=== PATIENT | female | born 1940 | race Caucasian/White ===

== ENCOUNTER → 2016-12-21 | Outpatient (CLI) | payer MEDICARE ==
[2016-12-21 10:48] LABS: BASOPHILS % (AUTO) 0 % (0-2); EOSINOPHILS # (AUTO) 0.2 10^3uL; EOSINOPHILS % (AUTO) 2 % (0-4); LYMPHOCYTES # (AUTO) 2.6 X10^3; MEAN CORPUSCULAR HEMOGLOBIN 30.8 PG (26.0-34.0); MEAN CORPUSCULAR HGB CONC 32.8 g/dL (31.0-37.0); MEAN CORPUSCULAR VOLUME 94 FL (80-100); MEAN PLATELET VOLUME 10.4 FL (6.0-9.5); MONOCYTES # (AUTO) 1.1 X10^3; MONOCYTES % (AUTO) 12 % (3-11); NEUTROPHILS # (AUTO) 5.5 X10^3; NEUTROPHILS % (AUTO) 59 % (51-67); PLATELET COUNT 268 10^3uL (150-450)
[2016-12-21 10:54] LABS: ALBUMIN 3.9 g/dL (3.4-5.0); ANION GAP 13.6 MEQ/L (3-15); CALCULATED IONIZED CALCIUM 4.1 mg/dL (3.8-4.6); TOTAL PROTEIN 7.1 g/dL (6.4-8.5)
[2016-12-21 11:29] LABS: ERYTHROCYTE SEDIMENTATION RT* 21 mm/hr (0-23)
== END ==
LOC: LAB 10:27
PROVIDERS: ATTEND Family Medicine
DX: E11.65 Type 2 diabetes mellitus with hyperglycemia (principal); E03.4 Atrophy of thyroid (acquired); R79.89 Other specified abnormal findings of blood chemistry; D50.8 Other iron deficiency anemias; M35.3 Polymyalgia rheumatica
CPT/HCPCS: 36415; 80053; 83036; 84436; 84443; 85025; 85652

== ENCOUNTER → 2017-01-04 | Outpatient (REF) | payer MEDICARE ==
[~2017-01-04] MED LIST: ALLO300T2 PO; BUSP15TA55 PO; CALC1TAB3 PO; CARV3.12T PO; CLPD75T PO; DULO60CA7 PO; FLUT1DIS3 IH; FRSM40T PO; HYDR-3811 PO; LEVO150T6 PO; LOSA100T8 PO; MELO15TA14 PO; OLOP2.5D OP; PRAV20TA PO; TIOT18CA IH
== END ==
LOC: LAB 12:33 → EDSTATUS 12:35
PROVIDERS: ATTEND Family Medicine
DX: A08.4 Viral intestinal infection, unspecified (principal)
CPT/HCPCS: 87507